=== PATIENT | male | born 1995 | race Caucasian/White ===

== ENCOUNTER 2021-07-11 09:11 | Emergency (ER) | payer OTHER ==
[2021-07-11] MEDS ORDERED: ONDANSETRON ODT 4 MG TAB.RAPDIS PO ONE (10:15)
--- NOTE | 2021-07-11 10:26 | PHYS DOC ---
General Adult EDM: Chief Complaint: HEADACHE HPI: HPI: Patient is a 25-year-old male presents after a fall this morning in his bathroom. Patient states about 530 this morning he tripped and fell in his bathroom on a water and hit his head on the side of the wall. Patient states "I was on my way to work driving and I started having double vision and vomited 1 time". Patient is also reporting a headache, dizziness, neck tenderness. Denies loss of consciousness. "I have had 4 concussions in the past and that is what this feels like by urgent care sent me here to have a CT of my head". Patient reports taking Tylenol at 530 this morning. Rates pain 04/21. Hemodynamically stable. (VIOLETTE PEREZ APRN) Review of Systems: Review of Systems: Constitutional: Denies fever or chills Eyes: Reports double vision HENT: Denies nasal congestion or sore throat Respiratory: Denies cough or shortness of breath Cardiovascular: Denies chest pain or edema GI: Denies abdominal pain. Reports nausea and vomiting x1 time : Denies dysuria Musculoskeletal: Denies back pain. Reports midline neck pain. Integument: Denies rash Neurologic: Reports headache. Denies focal weakness or sensory changes Endocrine: Denies polyuria or polydipsia Lymphatic: Denies swollen glands Psychiatric: Denies depression or anxiety (VIOLETTE PEREZ APRN) Current Medications: Current Meds: Current Medications Medications (Trade) Dose Ordered Sig/Chadd Start Time Stop Time Status Last Admin Dose Admin Ondansetron HCl (Zofran Odt) 4 mg 1X ONCE 07/11/21 10:15 07/11/21 10:16 UNV (VIOLETTE PEREZ APRN) Allergies: Allergies: Allergies Coded Allergies Type Severity Reaction Last Updated Verified No Known Drug Allergies 07/11/21 No (VIOLETTE PEREZ APRN) Physical Exam: PE: Constitutional: Well developed, well nourished, no acute distress, non-toxic appearance. [] HENT: Normocephalic, atraumatic, bilateral external ears normal, oropharynx moist, no oral exudates, nose normal. [] Eyes: PERRLA, EOMI, conjunctiva normal, no discharge. [] Neck: Normal range of motion, midline tenderness, supple, no stridor. [] Cardiovascular:Heart rate regular rhythm, no murmur [] Lungs & Thorax: Bilateral breath sounds clear to auscultation [] Abdomen: Bowel sounds normal, soft, no tenderness, no masses, no pulsatile masses. [] Skin: Warm, dry, no erythema, no rash. [] Back: No tenderness, no CVA tenderness. [] Extremities: No tenderness, no cyanosis, no clubbing, ROM intact, no edema. [] Neurologic: Alert and oriented X 3, normal motor function, normal sensory function, no focal deficits noted. [] Psychologic: Affect normal, judgement normal, mood normal. [] (VIOLETTE PEREZ APRN) EKG: EKG: Sinus rhythm. Heart rate 53 bpm. Normal, axis normal. No ST elevation or depression. Read by Dr. Woods at 1048. (VIOLETTE PEREZ APRN) Radiology/Procedures: Radiology/Procedures: []CT HEAD AND C-SPINE WO Date: 07/11/2021 10:09 AM Clinical Indication: FALL, NECK STIFFNESS, DIZZINESS, NAUSEA - HX 3 CONCUSSIONS Comparison: None. Technique: 5 mm axial tomographic images were obtained of the head without contrast. These were viewed on brain and bone windows. CT imaging of the cervical spine was performed without contrast. Coronal and sagittal reformatted images were performed. One or more of the following dose reduction techniques were utilized: Automated exposure control (AEC), Adjustment of mA and/or kV according to patient size, Use of iterative reconstruction technique such as ASiR, CT scan done according to ALARA and image gently/image wisely HEAD FINDINGS: The brain parenchyma is normal in attenuation. No intra- or extra-axial mass or fluid collection. No acute hemorrhage. The ventricles are normal in size, shape, and morphology. The aviles-white matter junction is normal. The basilar cisterns are patent. The visualized paranasal sinuses are normal. The visualized portions of the orbits and globes are normal. The mastoid air cells are clear. No aggressive osseous lesion or fracture. CERVICAL SPINE FINDINGS: The cervical spine is normally aligned. No acute fracture. No aggressive lytic or blastic osseous lesion. The intervertebral disc heights are maintained. No high-grade spinal canal stenosis or neural foraminal narrowing. The thyroid gland is normal. No cervical lymphadenopathy. The visualized aerodigestive tract is unremarkable. The visualized lung apices are clear. IMPRESSION: 1. No acute intracranial process. 2. No acute osseous abnormality of the cervical spine. Electronically signed by: Raj Huffman MD (07/11/2021 10:30 AM) [id number] (VIOLETTE PEREZ APRN) Heart Score: C/O Chest Pain: No Risk Factors: Risk Factors: DM, Current or recent (<one month) smoker, HTN, HLP, family history of CAD, obesity. Risk Scores: Score 0 - 3: 2.5% MACE over next 6 weeks - Discharge Home Score 4 - 6: 20.3% MACE over next 6 weeks - Admit for Clinical Observation Score 7 - 10: 72.7% MACE over next 6 weeks - Early Invasive Strategies (VIOLETTE PEREZ APRN) Course & Med Decision Making: Course & Med Decision Making Pertinent Labs and Imaging studies reviewed. (See chart for details) [] Nontoxic appearing, alert and oriented 25-year-old male presents after slipping on water in his bathroom this morning. Patient states he hit his head on the wall. No obvious injuries noted. Patient states he started having dizziness, double vision and vomited 1 time. Patient is also reporting some neck tenderness. Patient was seen at urgent care and sent to the ER for imaging. CT head and neck ordered to rule out fracture and intracranial bleeding. Visual acuity and EKG ordered. CT of head and neck negative for intracranial bleeding or fractures. Visual acuity check unremarkable. Right 20/20, left 20/20, both 20/20. EKG shows sinus rhythm, heart rate 53 bpm Patient given Zofran and ToradoL to treat pain and nausea.. Patient is most likely experiencing signs and symptoms of a concussion. Discussed signs and symptoms of concussion. Advised patient to follow-up with PCP. Patient given strict return precautions. Advised patient to take ibuprofen and Tylenol for headache. Patient is able to ambulate on his own and hemodynamically stable. Discussed results with patient. Patient is appreciative and okay with discharge plan. (VIOLETTE PEREZ APRN) Course & Med Decision Making I was the Attending physician on the above date of service of this patient. This patient was evaluated, examined, treated, and dispositioned from the emergency department by the mid-level practitioner. Although I was working at the time , no assistance was requested. Electronically signed, Olegario Woods DO (OLEGARIO WOODS DO) Gudelia Disclaimer: Gudelia Disclaimer: This electronic medical record was generated, in whole or in part, using a voice recognition dictation system. (VIOLETTE PEREZ APRN) Departure Departure: Impression: Primary Impression: Concussion Qualified Codes: S06.0X0A - Concussion without loss of consciousness, initial encounter Additional Impressions: Headache Qualified Codes: R51.9 - Headache, unspecified Nausea & vomiting Qualified Codes: R11.2 - Nausea with vomiting, unspecified Disposition: 01 HOME / SELF CARE / HOMELESS Condition: STABLE Referrals: NORBERTO CARVALHO (PCP) Patient Instructions: Concussion and Brain Injury, [id number] Additional Instructions: You were seen in the emergency room after slipping on water and hitting your head. CT of your head and neck was negative for intracranial bleeding or fracture. Visual acuity check was also unremarkable. You most likely are experiencing signs of a concussion. Its important to let your brain rest. Try to avoid TV, cell phone activity etc. Try and keep the lights dim and let your brain rest for the next couple of days. Ibuprofen and Tylenol for pain. Please make an appointment for follow-up with your PCP. Return to the emergency room if you have worsening symptoms or concerns. EMERGENCY DEPARTMENT GENERAL DISCHARGE INSTRUCTIONS Thank you for coming to [facility] (ED) today and trusting us with you care. We trust that you had a positivie experience in our Emergency Department. If you wish to speak to the department management, you may call the director at [phone]. YOUR FOLLOW UP INSTRUCTIONS ARE FOLLOWS: 1. Do you have a private Doctor? If you do not have a private doctor, please ask for a resource list of physicians or clinics that may be able to assist you with follow up care. 2. The Emergency Physician has interpreted your x-rays. The X-Ray specialist will also review them. If there is a change in the findings, you will be notified in 48 hours when at all possible. 3. A lab test or culture has been done, your results will be reviewed and you will be notified if you need a change in treatment. ADDITIONAL INSTRUCTIONS AND INFORMATION: 1. Your care today has been supervised by a physician who is specially trained in emergency care. Many problems require more than one evaluation for a complete diagnosis and treatment. We recommend that you schedule your follow up appointment as recommended to ensure complete treatment of you illness or injury. If you are unable to obtain follow up care and continue to have a problem, or if your condition worsens, we recommend that you return to the ED. 2. We are not able to safely determine your condition over the phone nor are we able to give sound medical advice over the phone. For these safety reasons, if you call for medical advice we will ask you to come to the ED for further evaluation. 3. If you have any questions regarding these discharge instructions please call the ED at [phone]. SAFETY INFORMATION: In the interest of safety, wellness, and injury prevention; we encourage you to wear your sealbelt, if you smoke; quite smoking, and we encourage family to use a protective helmet for bicycling and other sporting events that present an increased risk for head injury. IF YOUR SYMPTOMS WORSEN OR NEW SYMPTOMS DEVELOP, OR YOU HAVE CONCERNS ABOUT YOUR CONDITION; OR IF YOUR CONDITION WORSENS WHILE YOU ARE WAITING FOR YOUR FOLLOW UP APPOINTMENT; EITHER CONTACT YOUR PRIMARY CARE DOCTOR, THE PHYSICIAN WHOSE NAME AND NUMBER YOU WERE GIVEN, OR RETURN TO THE ED IMMEDIATELY. VIOLETTE PEREZ APRN Jul 11, 2021 10:26 OLEGARIO WOODS DO Jul 12, 2021 13:00
--- NOTE | 2021-07-11 10:32 | RAD ---
CT HEAD AND C-SPINE WO Date: 07/11/2021 10:09 AM Clinical Indication: FALL, NECK STIFFNESS, DIZZINESS, NAUSEA - HX 3 CONCUSSIONS Comparison: None. Technique: 5 mm axial tomographic images were obtained of the head without contrast. These were view ed on brain and bone windows. CT imaging of the cervical spine was performed without contrast. Coron al and sagittal reformatted images were performed. One or more of the following dose reduction techni ques were utilized: Automated exposure control (AEC), Adjustment of mA and/or kV according to patient size, Use of iterative reconstruction technique such as ASiR, CT scan done according to ALARA and im age gently/image wisely HEAD FINDINGS: The brain parenchyma is normal in attenuation. No intra- or extra-axial mass or fluid collection. No acute hemorrhage. The ventricles are normal in size, shape, and morphology. The aviles-white matter echo ction is normal. The basilar cisterns are patent. The visualized paranasal sinuses are normal. The visualized portions of the orbits and globes are no rmal. The mastoid air cells are clear. No aggressive osseous lesion or fracture. CERVICAL SPINE FINDINGS: The cervical spine is normally aligned. No acute fracture. No aggressive lytic or blastic osseous les ion. The intervertebral disc heights are maintained. No high-grade spinal canal stenosis or neural foramin al narrowing. The thyroid gland is normal. No cervical lymphadenopathy. The visualized aerodigestive tract is unrem arkable. The visualized lung apices are clear. IMPRESSION: 1. No acute intracranial process. 2. No acute osseous abnormality of the cervical spine. Electronically signed by: Raj Huffman MD (07/11/2021 10:30 AM) [id number]
[2021-07-11] MEDS ORDERED: KETOROLAC 15 MG/ML VIAL. IM ONE (10:45)
--- NOTE | 2021-07-11 13:36 | EKG ---
[address] [address] Test Date: 2021-07-11 Test Time: 10:36:08 Pat Name: ODALYS EM Department: Room: Gender: M School Manager: IVETH : 1995 Requested By: VIOLETTE PEREZ Order Number: [id number] Reading MD: Measurements Intervals [place] Rate: 53 P: 0 OR: 186 QRS: 53 QRSD: 94 T: 14 QT: 366 QTc: 345 Interpretive Statements SINUS RHYTHM OTHERWISE NORMAL ECG RI6.02 No previous ECG available for comparison
== END 2021-07-11 11:18 | disposition home or self-care (01) ==
LOC: ER 09:11
DX: S06.0X0A Concussion without loss of consciousness, initial encounter (principal); R11.2 Nausea with vomiting, unspecified; W01.198A Fall on same level from slipping, tripping and stumbling with subsequent striking against other object, initial encounter; Y93.89 Activity, other specified; Y92.091 Bathroom in other non-institutional residence as the place of occurrence of the external cause; Y99.8 Other external cause status
CPT/HCPCS: 70450; 72125; 93005; 96372; 99285; J1885; Q0162

== ENCOUNTER 2021-07-25 08:37 | Emergency (ER) | payer OTHER ==
[~2021-07-25] VITALS: Ht 193 cm; Wt 170.9 kg
--- NOTE | 2021-07-25 09:14 | EKG ---
[address] [address] Test Date: 2021-07-25 Test Time: 08:45:39 Pat Name: ODALYS EM Department: Room: Gender: M Reservations And Ticketing Agent: CHOLO : 1995 Requested By: OLEGARIO WOODS Order Number: [id number] Reading MD: Misbah Barber Measurements Intervals [place] Rate: 82 P: 36 IA: 168 QRS: 84 QRSD: 94 T: 11 QT: 300 QTc: 353 Interpretive Statements SINUS RHYTHM Electronically Signed On 07-26-2021 13:11:33 CDT by Misbah Barber
[2021-07-25 09:25] LABS: BASO # 0.1 x10^3/uL (0.0-0.2); BASO % 1 % (0-3); EOS # 0.1 x10^3/uL (0.0-0.7); EOS % 1 % (0-3); HEMATOCRIT 46.4 % (39.0-53.0); HEMOGLOBIN 15.7 g/dL (13.0-17.5); LYMPH # 2.1 x10^3/uL (1.0-4.8); LYMPH % 23 % (24-48); MEAN CORPUSCULAR HEMOGLOBIN 29 pg (25-35); MEAN CORPUSCULAR HGB CONC 34 g/dL (31-37); MEAN CORPUSCULAR VOLUME 86 fL (79-100); MONO # 0.9 x10^3/uL (0.0-1.1); MONO % 9 % (0-9); NEUT # 6.1 x10^3uL (1.8-7.7); NEUT % 66 % (31-73); PLATELET COUNT 250 x10^3/uL (140-400); RED BLOOD COUNT 5.42 x10^6/uL (4.30-5.70); RED CELL DISTRIBUTION WIDTH 14.1 % (11.5-14.5); WHITE BLOOD COUNT 9.3 x10^3/uL (4.0-11.0)
--- NOTE | 2021-07-25 09:25 | RAD ---
INDICATION: Reason: CHEST PAIN / Spl. Instructions: / History: COMPARISON: None. FINDINGS: 2 view of chest obtained. No definite focal airspace consolidation. Cardiac silhouette unremarkable. Mild spurring at the vertebral body endplates at thoracic spine. IMPRESSION: * No focal airspace consolidation or edema. Electronically signed by: Neo Nino MD (07/25/2021 9:23 AM) [id number]
[2021-07-25 09:33] LABS: CALCIUM 9.2 mg/dL (8.5-10.1); CREATININE 0.7 mg/dL (0.7-1.3); GFR 136.3; POTASSIUM 4.6 mmol/L (3.5-5.1)
--- NOTE | 2021-07-25 09:40 | PHYS DOC ---
Past History Past Surgical History: No Surgical History (VIOLETTE PEREZ APRN) Alcohol Use: Rarely (VIOLETTE PEREZ APRN) General Adult EDM: Chief Complaint: CHEST PAIN HPI: HPI: Patient is a 25-year-old male who presents with chest pain that started on Sunday night while he was at work. Patient states that pain is worse with deep breath and coughing. Patient is able to reproduce the pain when he pushes on his chest. Denies nausea/vomiting/diarrhea. Denies dizziness or shortness of breath. Denies recent illness. Patient states that he does have a chronic cough. Denies any medical history. (VIOLETTE PEREZ APRN) Review of Systems: Review of Systems: Constitutional: Denies fever or chills Eyes: Denies change in visual acuity HENT: Denies nasal congestion or sore throat Respiratory: Reports cough. Denies shortness of breath Cardiovascular: Reports chest pain GI: Denies abdominal pain, nausea, vomiting, bloody stools or diarrhea : Denies dysuria Musculoskeletal: Denies back pain or joint pain Integument: Denies rash Neurologic: Denies headache, focal weakness or sensory changes Endocrine: Denies polyuria or polydipsia Lymphatic: Denies swollen glands Psychiatric: Denies depression or anxiety (VIOLETTE PEREZ APRN) Allergies: Allergies: Allergies Coded Allergies Type Severity Reaction Last Updated Verified No Known Drug Allergies 07/25/21 No (VIOLETTE PEREZ APRN) Physical Exam: PE: Constitutional: Well developed, well nourished, no acute distress, non-toxic appearance. [] HENT: Normocephalic, atraumatic, bilateral external ears normal, oropharynx moist, no oral exudates, nose normal. [] Eyes: PERRLA, EOMI, conjunctiva normal, no discharge. [] Neck: Normal range of motion, no tenderness, supple, no stridor. [] Cardiovascular:Heart rate regular rhythm, no murmur [] Lungs & Thorax: Bilateral breath sounds clear to auscultation [] Abdomen: Bowel sounds normal, soft, no tenderness, no masses, no pulsatile masses. [] Skin: Warm, dry, no erythema, no rash. [] Back: No tenderness, no CVA tenderness. [] Extremities: No tenderness, no cyanosis, no clubbing, ROM intact, no edema. [] Neurologic: Alert and oriented X 3, normal motor function, normal sensory function, no focal deficits noted. [] Psychologic: Affect normal, judgement normal, mood normal. [] (VIOLETTE PEREZ APRN) Current Patient Data: Labs: Laboratory Tests Test 07/25/21 08:58 White Blood Count 9.3 x10^3/uL (4.0-11.0) Red Blood Count 5.42 x10^6/uL (4.30-5.70) Hemoglobin 15.7 g/dL (13.0-17.5) Hematocrit 46.4 % (39.0-53.0) Mean Corpuscular Volume 86 fL (79-100) Mean Corpuscular Hemoglobin 29 pg (25-35) Mean Corpuscular Hemoglobin Concent 34 g/dL (31-37) Red Cell Distribution Width 14.1 % (11.5-14.5) Platelet Count 250 x10^3/uL (140-400) Neutrophils (%) (Auto) 66 % (31-73) Lymphocytes (%) (Auto) 23 % (24-48) L Monocytes (%) (Auto) 9 % (0-9) Eosinophils (%) (Auto) 1 % (0-3) Basophils (%) (Auto) 1 % (0-3) Neutrophils # (Auto) 6.1 x10^3uL (1.8-7.7) Lymphocytes # (Auto) 2.1 x10^3/uL (1.0-4.8) Monocytes # (Auto) 0.9 x10^3/uL (0.0-1.1) Eosinophils # (Auto) 0.1 x10^3/uL (0.0-0.7) Basophils # (Auto) 0.1 x10^3/uL (0.0-0.2) Vital Signs: Vital Signs Date Time Temp Pulse Resp B/P (MAP) Pulse Ox O2 Delivery O2 Flow Rate FiO2 07/25/21 08:47 99.1 97 18 137/74 (95) 97 Room Air (VIOLETTE PEREZ APRN) EKG: EKG: [] (VIOLETTE PEREZ APRN) Radiology/Procedures: Radiology/Procedures: []INDICATION: Reason: CHEST PAIN / Spl. Instructions: / History: COMPARISON: None. FINDINGS: 2 view of chest obtained. No definite focal airspace consolidation. Cardiac silhouette unremarkable. Mild spurring at the vertebral body endplates at thoracic spine. IMPRESSION: * No focal airspace consolidation or edema. Electronically signed by: Neo Nino MD (07/25/2021 9:23 AM) [id number] (VIOLETTE PEREZ APRN) Heart Score: C/O Chest Pain: No Risk Factors: Risk Factors: DM, Current or recent (<one month) smoker, HTN, HLP, family history of CAD, obesity. Risk Scores: Score 0 - 3: 2.5% MACE over next 6 weeks - Discharge Home Score 4 - 6: 20.3% MACE over next 6 weeks - Admit for Clinical Observation Score 7 - 10: 72.7% MACE over next 6 weeks - Early Invasive Strategies (VIOLETTE PEREZ APRN) Course & Med Decision Making: Course & Med Decision Making Pertinent Labs and Imaging studies reviewed. (See chart for details) [] 25-year-old male presents with chest pain that started on Sunday night. Pain is reproducible and worse with deep breathing and coughing. Patient reports he has a chronic cough. Denies shortness of breath. Chest x-ray is unremarkable. All labs unremarkable. Troponin is negative. Heart score of 0. Patient symptoms are most likely related to pleuritic chest pain. Ibuprofen and Tylenol at home for discomfort. Discussed results with patient. Advised patient to call Dr. Carvalho and make an appointment for follow-up. Patient is appreciative and okay with discharge plan. Patient is hemodynamically stable at the time of disposition. (VIOLETTE PEREZ APRN) Course & Med Decision Making I was the Attending physician on the above date of service of this patient. This patient was evaluated, examined, treated, and dispositioned from the emergency department by the mid-level practitioner. Although I was working at the time , no assistance was requested. Electronically signed, Olegario Woods DO (OLEGARIO WOODS DO) Gudelia Disclaimer: Gudelia Disclaimer: This electronic medical record was generated, in whole or in part, using a voice recognition dictation system. (VIOLETTE PEREZ APRN) Departure Departure: Impression: Primary Impression: Chest pain, pleuritic Additional Impression: Chronic cough Disposition: HOME / SELF CARE / HOMELESS Condition: STABLE Referrals: NORBERTO CARVALHO (PCP) Patient Instructions: Pleurisy, [id number] Additional Instructions: You were seen in the emergency room for chest pain. All of your labs are unremarkable. Your chest x-ray was unremarkable. Your symptoms are most likely related to pleuritic chest pain. Ibuprofen and Tylenol at home for discomfort. Please call your PCP make a follow-up appointment. EMERGENCY DEPARTMENT GENERAL DISCHARGE INSTRUCTIONS Thank you for coming to [facility] ([facility]) today and trusting us with you care. We trust that you had a positivie experience in our Emergency Department. If you wish to speak to the department management, you may call the director at [phone]. YOUR FOLLOW UP INSTRUCTIONS ARE FOLLOWS: 1. Do you have a private Doctor? If you do not have a private doctor, please ask for a resource list of physicians or clinics that may be able to assist you with follow up care. 2. The Emergency Physician has interpreted your x-rays. The X-Ray specialist will also review them. If there is a change in the findings, you will be notified in 48 hours when at all possible. 3. A lab test or culture has been done, your results will be reviewed and you will be notified if you need a change in treatment. ADDITIONAL INSTRUCTIONS AND INFORMATION: 1. Your care today has been supervised by a physician who is specially trained in emergency care. Many problems require more than one evaluation for a complete diagnosis and treatment. We recommend that you schedule your follow up appointment as recommended to ensure complete treatment of you illness or injury. If you are unable to obtain follow up care and continue to have a problem, or if your condition worsens, we recommend that you return to the ED. 2. We are not able to safely determine your condition over the phone nor are we able to give sound medical advice over the phone. For these safety reasons, if you call for medical advice we will ask you to come to the ED for further evaluation. 3. If you have any questions regarding these discharge instructions please call the ED at [phone]. SAFETY INFORMATION: In the interest of safety, wellness, and injury prevention; we encourage you to wear your sealbelt, if you smoke; quite smoking, and we encourage family to use a protective helmet for bicycling and other sporting events that present an increased risk for head injury. IF YOUR SYMPTOMS WORSEN OR NEW SYMPTOMS DEVELOP, OR YOU HAVE CONCERNS ABOUT YOUR CONDITION; OR IF YOUR CONDITION WORSENS WHILE YOU ARE WAITING FOR YOUR FOLLOW UP APPOINTMENT; EITHER CONTACT YOUR PRIMARY CARE DOCTOR, THE PHYSICIAN WHOSE NAME AND NUMBER YOU WERE GIVEN, OR RETURN TO THE ED IMMEDIATELY. VIOLETTE PEREZ APRN Jul 25, 2021 09:40 OLEGARIO WOODS DO Jul 26, 2021 06:23
[2021-07-25 09:41] VITALS: BP 118/53
[2021-07-25 09:45] LABS: ALBUMIN 3.9 g/dL (3.4-5.0); ALBUMIN/GLOBULIN RATIO 1.2 (1.0-1.7); TOTAL BILIRUBIN 0.4 mg/dL (0.2-1.0); TOTAL PROTEIN 7.1 g/dL (6.4-8.2)
== END 2021-07-25 10:18 | disposition home or self-care (01) ==
LOC: ER 08:37
DX: R07.81 Pleurodynia (principal); R05 Cough
CPT/HCPCS: 36415; 71046; 80053; 84484; 85025; 93005; 99285

== ENCOUNTER 2022-01-23 16:41 | Emergency (ER) | payer OTHER ==
[~2022-01-23] VITALS: Ht 193 cm; Wt 172.2 kg
--- NOTE | 2022-01-23 16:44 | PHYS DOC ---
Past History Past Surgical History: No Surgical History Alcohol Use: Rarely Adult General HPI HPI Patient is a 26 year old male who presents with abdominal pain. Patient had onset of symptoms yesterday morning after he awoke. Complained of pain in the left side of the mid abdomen that sometimes radiates to the left flank. Over the course of the last 24 hours, pain has persistently worsening pain. He noted some darker colored urine the night before that. Has had also worsening nausea with 4 episodes of emesis today. Comes to the ER complaining of 10/10 pain in the left anterior inside portion of the abdomen. No prior history of similar symptoms. No prior history of abdominal surgeries. No recent illness otherwise. Review of Systems Review of Systems Constitutional: Denies fever or chills Eyes: Denies change in visual acuity, redness, or eye pain HENT: Denies nasal congestion or sore throat Respiratory: Denies cough or shortness of breath Cardiovascular: No additional information not addressed in HPI GI: As documented in HPI : Denies dysuria or hematuria Musculoskeletal: Denies back pain Integument: Denies rash or skin lesions Neurologic: Denies Endocrine: Denies All other systems were reviewed and found to be within normal limits, except as documented in this note. Allergies Allergies Allergies Coded Allergies Type Severity Reaction Last Updated Verified No Known Drug Allergies 07/25/21 No Physical Exam Physical Exam Constitutional: Well developed, well nourished, no acute distress, non-toxic appearance HENT: Normocephalic, atraumatic, bilateral external ears normal, oropharynx moist Eyes: PERRLA, EOMI, conjunctiva normal, no discharge Neck: Normal range of motion Cardiovascular:Heart rate regular rhythm, no murmur Lungs & Thorax: Bilateral breath sounds clear to auscultation Abdomen: Bowel sounds normal, soft, subjectively tender to palpate over the left upper and lower quadrant but no guarding or rebound. Nonperitoneal exam. Skin: Warm, dry, no erythema, no rash Back: Normal ROM Extremities: Normal ROM Neurologic: Alert and oriented X 3 Psychologic: Affect normal EKG EKG [] Radiology/Procedures Radiology/Procedures [] Heart Score C/O Chest Pain: N/A Risk Factors: Risk Factors: DM, Current or recent (<one month) smoker, HTN, HLP, family history of CAD, obesity. Risk Scores: Risk Factors: DM, Current or recent (<one month) smoker, HTN, HLP, family history of CAD, obesity. Course & Med Decision Making Course & Med Decision Making Pertinent Labs and Imaging studies reviewed. (See chart for details) Mr. Mcnamara is seen and examined on arrival to his room. No acute distress although he complains of pain that is rated 10/10. Standard abdominal pain work-up is ordered. Toradol, morphine, Zofran ordered for symptom relief and will give IV fluids. 17:50: Patient is reevaluated. Continues to have pain 8/10. Fentanyl was ordered. CT scan results pending and labs pending. Transfer Care to Dr. Mora. Gudelia Disclaimer Gudelia Disclaimer This electronic medical record was generated, in whole or in part, using a voice recognition dictation system. Departure Departure: Impression: Primary Impression: Abdominal pain YOLI GEORGE DO Jan 23, 2022 16:44
[2022-01-23] MEDS: IV NORMAL SALINE 1,000ML 1,000 ML IV ONE (17:08)
[2022-01-23] MEDS: ONDANSETRON PF 4 MG/2 ML VIAL. IVP ONE (17:09)
[2022-01-23] MEDS: KETOROLAC 30 MG/ML VIAL. IVP ONE (17:10)
[2022-01-23] MEDS: MORPHINE SULFATE 4 MG/ML DISP.SYRIN. IV ONE (17:12)
[2022-01-23 17:27] LABS: BASO # 0.1 x10^3/uL (0.0-0.2); BASO % 3 % (0-3); EOS % 0 % (0-3); HEMATOCRIT 43.5 % (39.0-53.0); HEMOGLOBIN 14.7 g/dL (13.0-17.5); LYMPH # 0.8 x10^3/uL (1.0-4.8); LYMPH % 16 % (24-48); MEAN CORPUSCULAR HEMOGLOBIN 28 pg (25-35); MEAN CORPUSCULAR HGB CONC 34 g/dL (31-37); MEAN CORPUSCULAR VOLUME 84 fL (79-100); MONO # 0.3 x10^3/uL (0.0-1.1); MONO % 5 % (0-9); NEUT # 3.9 x10^3uL (1.8-7.7); NEUT % 76 % (31-73); PLATELET COUNT 237 x10^3/uL (140-400); RED BLOOD COUNT 5.18 x10^6/uL (4.30-5.70); RED CELL DISTRIBUTION WIDTH 13.6 % (11.5-14.5); WHITE BLOOD COUNT 5.2 x10^3/uL (4.0-11.0)
[2022-01-23] MEDS: IOHEXOL 300 MG/ML 75 ML VIAL. IV ONE (17:28)
[2022-01-23 17:35] LABS: CALCIUM 8.9 mg/dL (8.5-10.1); GFR 89.6; POTASSIUM 3.7 mmol/L (3.5-5.1)
[2022-01-23 17:41] LABS: ALBUMIN 4.2 g/dL (3.4-5.0); ALBUMIN/GLOBULIN RATIO 1.2 (1.0-1.7); TOTAL BILIRUBIN 0.9 mg/dL (0.2-1.0); TOTAL PROTEIN 7.6 g/dL (6.4-8.2)
--- NOTE | 2022-01-23 17:47 | RAD ---
Examination: CT of the abdomen pelvis with IV contrast HISTORY: History of left-sided abdominal pain COMPARISON: None available TECHNIQUE: Axial CT images of the abdomen pelvis were performed with IV contrast. Coronal and sagitta l reformats are performed. Please note that there is not much contrast in the solid organs or the kid neys identified. I verified with the technologist and she did mention that the contrast was given. Exposure: One or more of the following individualized dose reduction techniques were utilized for thi s examination: 1. Automated exposure control 2. Adjustment of the mA and/or kV according to patient size 3. Use of iterative reconstruction technique FINDINGS: The bibasilar lungs are clear. No evidence of free air identified.Mild decreased attenuation noted in the liver likely steatosis. Examination is limited as there is not much contrast in the solid organs of the kidneys. The gallbladder is mildly distended. The stomach is mildly distended. The visualized pancreas grossly appears unremarkable. Small bowel is nondilated. Feces and gas noted in the colon. Urinary bladder is mildly distended. There is a 8 mm calculus identified in the right kidney. Punctate 2 mm calculus identified in the rig ht kidney. Mild left-sided hydronephrosis with a 3 mm calculus identified at the left ureteropelvic j unction. Punctate 1 mm calculus identified in the left kidney. No evidence of lytic bony destructive lesion. Mild degenerative changes thoracal lumbar spine. IMPRESSION: 1. 3 mm calculus identified at the left ureteropelvic junction causing mild left-sided hydronephrosi s. 2. Bilateral nephrolithiasis. 3. Mild hepatic steatosis. Electronically signed by: Kanu West MD (01/23/2022 5:44 PM) [id number]
[2022-01-23 17:49] VITALS: BP 129/66
[2022-01-23] MEDS ORDERED: HYDR-2155 PO (18:19)
[2022-01-23 18:37] LABS: CLARITY,URINE CLEAR; COLOR,URINE YELLOW; GLUCOSE,URINE NEG (NEG)
[2022-01-23 18:38] LABS: BACTERIA,URINE 0 /HPF (0-FEW); NITRITE,URINE NEG (NEG); RBC,URINE >40 /HPF (0-2); UROBILINOGEN,URINE 0.2 mg/dL (0.2 mg/dL); WBC,URINE 0 /HPF (0-4)
== END 2022-01-23 19:09 | disposition home or self-care (01) ==
LOC: ER 16:41
DX: R10.12 Left upper quadrant pain (principal); R10.32 Left lower quadrant pain; R11.2 Nausea with vomiting, unspecified
CPT/HCPCS: 36415; 74177; 80053; 81001; 83690; 85025; 96361; 96374; 96375; 99285; J1885; J2270; J2405; J3010; J7030; Q9967